=== PATIENT | female | born 1940 | race Caucasian/White ===

== ENCOUNTER 2017-01-18 07:05 | Day surgery (SDC) | payer OTHER ==
[~2017-01-18] VITALS: Ht 152.4 cm; Wt 50.0 kg
[~2017-01-18 07:05] MED LIST: ASCO10004 PO; CEFD300C2 PO; CIME200T4 PO; FOLI0.8T2 PO; GLYB5TAB3 PO; IBUP-1 PO; INSU100C5 SQ-INSULIN; LEVO50TA5 PO; LISI2.5T PO; METF500T4 PO; METO25TA91 PO; ONDA-39 IV; OXYC5CAP4 PO; POTA10TA11 PO; PRAV10TA2 PO; VITA1TAB3 PO; [UNRECOGNIZED DRUG - CODE] PO
[2017-01-18] MEDS ORDERED: ANTIBIOTIC PO (07:59)
[2017-01-18] MEDS ORDERED: METOPROLOL PO (08:02)
[2017-01-18 08:04] VITALS: BP 131/88
[2017-01-18] MEDS ORDERED: FLUMAZENIL 0.1 MG/1 ML, 5ML ONE (08:48)
[2017-01-18] MEDS ORDERED: MIDAZOLAM 1 MG/ML, 5ML ONE (08:48)
[2017-01-18] MEDS ORDERED: NALOXONE 1 MG/ML, 2ML ONE (08:48)
[2017-01-18] MEDS ORDERED: FENTANYL PF 100 MCG/2ML ONE (08:48)
== END 2017-01-18 11:30 | disposition home or self-care (01) ==
LOC: OUT 07:05
PROVIDERS: ATTEND Specialist
DX: C23 Malignant neoplasm of gallbladder (principal); I10 Essential (primary) hypertension; E11.9 Type 2 diabetes mellitus without complications
CPT/HCPCS: 36415; 47000; 76942; 85610; 87070; 87077; 87205; 88307; 88333; J2250; J3010; 87186; 99156; 99157; J2310

== ENCOUNTER 2017-01-23 07:53 | Inpatient (IN) | payer OTHER ==
[~2017-01-23] VITALS: Ht 152.4 cm; Wt 60.2 kg
[~2017-01-23 07:53] MED LIST changes: +ANTIBIOTIC PO; +METOPROLOL PO
[2017-01-23] MEDS ORDERED: SODIUM CHLORIDE 0.9% 1,000 ML IV ONE (08:30)
[2017-01-23] MEDS ORDERED: MORPHINE SULFATE 4 MG/ML, 1ML IVPush PRN ×2 (08:30→11:30)
[2017-01-23] MEDS ORDERED: ONDANSETRON 2MG/ML, 2ML ONE ×2 (08:52→09:32)
[2017-01-23] MEDS ORDERED: MORPHINE SULFATE 4 MG/ML, 1ML ONE ×3 (08:52→09:30)
[2017-01-23 09:20] LABS: HEMOGLOBIN 12.4 g/dL (11.7-16.4)
[2017-01-23] MEDS ORDERED: morphine SULFATE 10 MG/ML, 1ML IVPush ONE (09:30)
[2017-01-23 09:31] LABS: ASPARTATE AMINO TRANSFERASE 259 U/L (15-37); BLOOD UREA NITROGEN 50 mg/dL (7-18)
[2017-01-23 09:50] LABS: IS PT STATUS REG ER OR PRE ER? YES
[2017-01-23 09:51] LABS: DIFF TOTAL CELLS COUNTED 100 CELL DIFF
[2017-01-23 09:54] LABS: VERIFY COUNTS? YES
[2017-01-23 09:59] LABS: ANISOCYTOSIS 1+
[2017-01-23] MEDS ORDERED: SODIUM CHLORIDE 0.9% 1,000ML IVBOLUS ONE ×2 (10:00→16:30)
[2017-01-23] MEDS ORDERED: DEXTROSE 10% 1,000 ML IV ONE (10:12)
[2017-01-23 10:38] LABS: ABG COLLECTION SITE RIGHT RADIAL
[2017-01-23 10:39] LABS: COLLATERAL CIRCULATION TESTING NOT DOCUMENTED; FIO2 ROOMAIR %
[2017-01-23] MEDS ORDERED: CEFTRIAXONE PMX 1GM/50ML 50 ML ONE (10:53)
[2017-01-23] MEDS ORDERED: CEFTRIAXONE PMX 1GM/50ML 50 ML IV ONE (11:00)
[2017-01-23] MEDS ORDERED: PROPOFOL 10 MG/ML, 20ML ONE (11:00)
[2017-01-23] MEDS ORDERED: ETOMIDATE 40 MG/20 ML ONE (11:00)
[2017-01-23] MEDS ORDERED: MIDAZOLAM 1 MG/ML, 5ML ONE (11:00)
[2017-01-23] MEDS: D5%-0.9% NACL+KCL 20MEQ 1,000 ML IV SCH ×3 (11:14→23:56)
[2017-01-23] MEDS: REGULAR INSULIN 62.5 UNITS in SODIUM CHLORIDE 0.9% 249.375 ML IV PRN ×2 (11:20→19:56)
[2017-01-23] MEDS ORDERED: ACETAMINOPHEN 325 MG TABLET PO PRN (11:30)
[2017-01-23] MEDS ORDERED: OXYcodone IR 5MG TABLET PO PRN (11:30)
[2017-01-23] MEDS ORDERED: ONDANSETRON 2MG/ML, 2ML IVP PRN (11:30)
[2017-01-23] MEDS ORDERED: DOCUSATE 100 MG CAPSULE PO PRN (11:30)
[2017-01-23] MEDS ORDERED: POLYETHYLENE GLYCOL 17 GM PACKET PO PRN (11:30)
[2017-01-23] MEDS ORDERED: LORazepam 2 MG/ML, 1ML IVPush PRN (11:30)
[2017-01-23] MEDS ORDERED: NOREPINEPHRINE 1 MG/ML, 4ML ONE (12:21)
[2017-01-23] MEDS: PIPERACILLIN/TAZO/PMX 2.25GM 50 ML IV SCH ×3 (12:33→23:26)
[2017-01-23] MEDS: NOREPINEPHRINE 4 MG in SODIUM CHLORIDE 0.9% 246 ML IV PRN ×3 (12:45→19:56)
[2017-01-23] MEDS: LINEZOLID PMX 600MG/300ML 300 ML IV SCH ×2 (13:44→23:52)
[2017-01-23] MEDS: POTASSIUM CHLORIDE IV SCH ×3 (13:47→19:56)
[2017-01-23] MEDS: SODIUM BICARB IV SCH ×3 (13:47→19:56)
[2017-01-23] MEDS: [UNRECOGNIZED DRUG - OTHER] IV SCH ×3 (13:47→19:56)
[2017-01-23] MEDS ORDERED: ALBUTEROL/IPRATROPIUM 2.5MG/0.5MG, 3 ML INLINE SCH (14:00)
[2017-01-23] MEDS ORDERED: PHARMACY MAY ADJ FOR RENAL FX MC SCH (14:00)
[2017-01-23] MEDS ORDERED: VASOPRESSIN 100 UNIT in SODIUM CHLORIDE 0.9% 495 ML IV PRN (14:30)
[2017-01-23 15:11] LABS: ABG COLLECTION SITE LEFT RADIAL; COLLATERAL CIRCULATION TESTING NORMAL
[2017-01-23] MEDS: PROPOFOL 100 ML IV PRN (15:22)
[2017-01-23] MEDS: INSULIN REGULAR 100 UNITS/ML, 3ML VIAL SQ-INSULIN SCH ×2 (16:00→21:00)
[2017-01-23 16:40] LABS: POTASSIUM,URINE RANDOM 22 mmol/L
[2017-01-23] MEDS: LEVOTHYROXINE 100 MCG INJ IVPush SCH (16:49)
[2017-01-23 17:27] LABS: ABG COLLECTION SITE RIGHT BRACHIAL
[2017-01-23 17:37] LABS: IS PT STATUS REG ER OR PRE ER? NO
[2017-01-23] MEDS ORDERED: SODIUM BICARB 8.4%, 50ML SYRINGE ONE (17:41)
[2017-01-23] MEDS ORDERED: SODIUM BICARB 8.4%, 50ML SYRINGE IVPush ONE (18:00)
[2017-01-23] MEDS: SODIUM BICARB 8.4%,50ML SYR. 150 MEQ in SODIUM CHLORIDE 0.45% 1,000 ML IV SCH ×2 (18:17→23:52)
[2017-01-23] MEDS: NOREPINEPHRINE 8 MG in SODIUM CHLORIDE 0.9% 242 ML IV PRN ×2 (18:30→22:13)
[2017-01-23] MEDS ORDERED: DEXTROSE 50%, 50ML SYRINGE ONE (21:03)
[2017-01-23] MEDS ORDERED: DEXTROSE 50%, 50ML SYRINGE IVPush ONE ×2 (21:30→22:00)
[2017-01-24] MEDS: LIDOCAINE-MPF 1%, 2ML ENDO PRN ×2 (00:50→00:54)
[2017-01-24] MEDS ORDERED: DEXTROSE 10%, 1,000ML IV SCH ×2 (01:00→05:00)
[2017-01-24] MEDS: NOREPINEPHRINE 8 MG in SODIUM CHLORIDE 0.9% 242 ML IV PRN ×2 (02:37→08:04)
[2017-01-24] MEDS: PROPOFOL 100 ML IV PRN (02:38)
[2017-01-24 03:35] VITALS: BP 81/45
[2017-01-24 04:26] VITALS: BP 92/49
[2017-01-24 04:41] LABS: ABG COLLECTION SITE NOT DOCUMENTED
[2017-01-24 04:45] LABS: BLOOD UREA NITROGEN 46 mg/dL (7-18)
[2017-01-24] MEDS ORDERED: SODIUM BICARB 8.4%, 50ML SYRINGE IVPush STA (04:45)
[2017-01-24 04:52] LABS: ASPARTATE AMINO TRANSFERASE 1733 U/L (15-37)
[2017-01-24] MEDS ORDERED: DEXTROSE 10% 1,000 ML IV SCH (05:00)
[2017-01-24] MEDS: PIPERACILLIN/TAZO/PMX 2.25GM 50 ML IV SCH (05:33)
[2017-01-24 05:48] LABS: HEMOGLOBIN 9.2 g/dL (11.7-16.4)
[2017-01-24 05:49] LABS: DIFF TOTAL CELLS COUNTED 100 CELL DIFF
[2017-01-24] MEDS: SODIUM BICARB 8.4%,50ML SYR. 150 MEQ in SODIUM CHLORIDE 0.45% 1,000 ML IV SCH (05:58)
[2017-01-24 05:59] LABS: VERIFY COUNTS? YES
[2017-01-24 06:01] LABS: ANISOCYTOSIS 1+; MONOS WITH VACUOLES 1+
[2017-01-24 06:02] LABS: POLYCHROMASIA 1+
[2017-01-24] MEDS: INSULIN REGULAR 100 UNITS/ML, 3ML VIAL SQ-INSULIN SCH (07:00)
[2017-01-24] MEDS ORDERED: ALBUMIN HUMAN 25% 100 ML IV SCH (07:30)
[2017-01-24] MEDS ORDERED: PANTOPRAZOLE 40 MG IV IVP SCH (07:30)
[2017-01-24] MEDS ORDERED: MAGNESIUM SULFATE PMX 2GM/50ML 50 ML IV ONE (07:30)
[2017-01-24] MEDS: LEVOTHYROXINE 100 MCG INJ IVPush SCH (08:49)
[2017-01-24] MEDS ORDERED: ATROPINE OPHTH SOLN 1%, 2ML PO PRN (11:30)
[2017-01-24] MEDS ORDERED: LORazepam 2 MG/ML, 1ML IV PRN (11:30)
[2017-01-24] MEDS ORDERED: morphine SULFATE 10 MG/ML, 1ML IV ONE (11:30)
[2017-01-24] MEDS ORDERED: LORazepam 2 MG/ML, 1ML IV ONE (11:30)
[2017-01-24] MEDS ORDERED: ALBUTEROL/IPRATROPIUM 2.5MG/0.5MG, 3 ML INLINE PRN (14:00)
== END 2017-01-24 11:45 | disposition expired | DRG 871 ==
LOC: ED 10:31 → EDIP 10:33 → ED 10:41 → CCU 11:46
PROVIDERS: ADMIT Internal Medicine; ATTEND Internal Medicine
PROC: 0BH17EZ Insertion of Endotracheal Airway into Trachea, Via Natural or Artificial Opening (ICD-10-PCS; principal; 2017-01-23)
PROC: 5A1935Z Respiratory Ventilation, Less than 24 Consecutive Hours (ICD-10-PCS; 2017-01-23)
PROC: 0T9B70Z Drainage of Bladder with Drainage Device, Via Natural or Artificial Opening (ICD-10-PCS; 2017-01-23)
DX: A41.9 Sepsis, unspecified organism (principal); E43 Unspecified severe protein-calorie malnutrition; K75.0 Abscess of liver; R65.21 Severe sepsis with septic shock; K65.0 Generalized (acute) peritonitis; J96.00 Acute respiratory failure, unspecified whether with hypoxia or hypercapnia; K65.1 Peritoneal abscess; E13.10 Other specified diabetes mellitus with ketoacidosis without coma; N17.9 Acute kidney failure, unspecified; D68.4 Acquired coagulation factor deficiency; E87.1 Hypo-osmolality and hyponatremia; N13.30 Unspecified hydronephrosis; Z99.11 Dependence on respirator [ventilator] status; K43.9 Ventral hernia without obstruction or gangrene; K21.9 Gastro-esophageal reflux disease without esophagitis; D63.8 Anemia in other chronic diseases classified elsewhere; E78.5 Hyperlipidemia, unspecified; I10 Essential (primary) hypertension; E03.9 Hypothyroidism, unspecified; D69.6 Thrombocytopenia, unspecified; E86.9 Volume depletion, unspecified; E87.8 Other disorders of electrolyte and fluid balance, not elsewhere classified; Z83.3 Family history of diabetes mellitus; Z85.05 Personal history of malignant neoplasm of liver; Z68.25 Body mass index [BMI] 25.0-25.9, adult
CPT/HCPCS: 36415; 36600; 70450; 71010; 74176; 80053; 81001; 82010; 82140; 82436; 82533; 82570; 82803; 82962; 83036; 83605; 83690; 83735; 84100; 84133; 84145; 84300; 84439; 84443; 84478; 84481; 84484; 85025; 85610; 87040; 87077; 87081; 87086; 87186; 93005; 94002; 94003; 96361; 96365; 96366; 96375; J0696; J2020; J2250; J2543; J2704; J3480; J3490; P9047; C1751; C9113; J2060; J2270; J3475; J7030; J7050